=== PATIENT | male | born 1940 | race Caucasian/White ===

== ENCOUNTER 2019-01-27 12:45 | Inpatient (IN) | payer BC, MEDICARE ==
[~2019-01-27] VITALS: Ht 180.3 cm; Wt 93.5 kg
[2019-01-27] MEDS ORDERED: ADENOSINE 6 MG/2 ML ONE (12:56)
[2019-01-27] MEDS ORDERED: SODIUM CHLORIDE FLUSH 10ML SYR IVF ONE (13:00)
--- NOTE | 2019-01-27 13:21 | NUR ---
PAGED DR FAUST FOR DR Hasmukh GIVENS
[2019-01-27 13:25] LABS: BASOPHILS # (AUTO) 0.03 x10^3/uL (0-0.1); BASOPHILS % (AUTO) 0 % (0-1); EOSINOPHILS # (AUTO) 0.13 x10^3/uL (0-0.4); EOSINOPHILS % (AUTO) 2 % (1-7); LYMPHOCYTES % (AUTO) 27 % (22-44); MD NO; MEAN CORPUSCULAR HEMOGLOBIN 34.2 pg (27.5-34.5); MEAN CORPUSCULAR HGB CONC 33.3 g/dL (33.2-36.2); MEAN CORPUSCULAR VOLUME 102.7 fL (81-97); MEAN PLATELET VOLUME 8.4 fL (7.4-10.4); MONOCYTES % (AUTO) 9 % (2-9); NEUTROPHILS # (AUTO) 4.89 x10^3/uL (1.8-6.8); NEUTROPHILS % (AUTO) 62 % (42-75); PLATELET COUNT 210 x10^3/uL (130-400); RED CELL DISTRIBUTION WIDTH 12.6 % (9.4-14.8)
[2019-01-27] MEDS ORDERED: DILTIAZEM 125 MG in SODIUM CHLORIDE 0.9% 100 ML IV SCH ×2 (13:26→16:30)
[2019-01-27] MEDS ORDERED: DILTIAZEM 5 MG/ML, 5ML ONE (13:27)
[2019-01-27] MEDS ORDERED: DILTIAZEM 5 MG/ML, 5ML IV ONE (13:30)
[2019-01-27 13:37] LABS: ALANINE AMINOTRANSFERASE 22 U/L (12-78); ALBUMIN 3.5 g/dL (3.4-5.0); ANION GAP 5 mmol/L (5-15); CALCIUM 8.2 mg/dL (8.5-10.1); CHLORIDE 104 mmol/L (98-107); CREATININE 0.88 mg/dL (0.7-1.3)
[2019-01-27 13:42] LABS: ALKALINE PHOSPHATASE 53 U/L (45-117); BILIRUBIN,TOTAL 1.1 mg/dL (0.2-1.0); TOTAL PROTEIN 6.3 g/dL (6.4-8.2); TROPONIN I 0.045 ng/mL (0.000-0.045)
[2019-01-27] MEDS ORDERED: LOSA100T14 PO (14:08)
[2019-01-27] MEDS ORDERED: ASPI-496 PO (14:08)
[2019-01-27] MEDS ORDERED: AMLO-150 PO (14:08)
[2019-01-27] MEDS ORDERED: DOCUSATE 100 MG CAPSULE PO PRN (16:00)
[2019-01-27] MEDS ORDERED: ACETAMINOPHEN 325 MG TABLET PO PRN (16:00)
[2019-01-27] MEDS ORDERED: ENALAPRILAT 1.25 MG/ML, 2ML IV PRN (16:00)
[2019-01-27] MEDS ORDERED: ONDANSETRON ODT 4 MG PO PRN (16:00)
[2019-01-27 16:01] VITALS: BP 121/63
[2019-01-27] MEDS: METOPROLOL TARTRATE 50 MG TABLET PO SCH ×2 (16:35→21:31)
[2019-01-27 16:43] VITALS: BP 111/77
[2019-01-27] MEDS ORDERED: SIMV10TA3 PO (17:05)
[2019-01-27 18:47] VITALS: BP 110/71
[2019-01-27 21:30] VITALS: BP 126/79
[2019-01-27] MEDS: APIXABAN 5 MG TABLET PO SCH (21:31)
[2019-01-27] MEDS: SIMVASTATIN 10 MG TABLET PO SCH (21:31)
[2019-01-27] MEDS: ASPIRIN 81 MG TABLET EC PO SCH (21:31)
[2019-01-28] MEDS ORDERED: DILTIAZEM 5 MG/ML, 5ML IVPush PRN
[2019-01-28] MEDS ORDERED: SIMETHICONE 80 MG CHEW TAB PO PRN
[2019-01-28 01:00] VITALS: BP 111/75
[2019-01-28 05:18] LABS: BASOPHILS # (AUTO) 0.02 x10^3/uL (0-0.1); BASOPHILS % (AUTO) 0 % (0-1); EOSINOPHILS # (AUTO) 0.24 x10^3/uL (0-0.4); EOSINOPHILS % (AUTO) 4 % (1-7); LYMPHOCYTES # (AUTO) 1.98 x10^3/uL (1-3.4); LYMPHOCYTES % (AUTO) 31 % (22-44); MD NO; MEAN CORPUSCULAR HEMOGLOBIN 35.4 pg (27.5-34.5); MEAN CORPUSCULAR HGB CONC 33.9 g/dL (33.2-36.2); MEAN CORPUSCULAR VOLUME 104.5 fL (81-97); MEAN PLATELET VOLUME 8.9 fL (7.4-10.4); MONOCYTES # (AUTO) 0.59 x10^3/uL (0.2-0.8); MONOCYTES % (AUTO) 9 % (2-9); NEUTROPHILS # (AUTO) 3.56 x10^3/uL (1.8-6.8); NEUTROPHILS % (AUTO) 56 % (42-75); PLATELET COUNT 201 x10^3/uL (130-400); RED BLOOD COUNT 3.96 x10^6/uL (4.38-5.82); RED CELL DISTRIBUTION WIDTH 13.1 % (9.4-14.8)
[2019-01-28 05:32] LABS: ANION GAP 5 mmol/L (5-15); CALCIUM 8.1 mg/dL (8.5-10.1); CHLORIDE 108 mmol/L (98-107)
[2019-01-28 05:33] LABS: CREATININE 0.86 mg/dL (0.7-1.3)
[2019-01-28 05:47] VITALS: BP 137/90
[2019-01-28 06:40] LABS: TROPONIN I < 0.015 ng/mL (0.000-0.045)
[2019-01-28 07:15] VITALS: BP 128/87
[2019-01-28] MEDS: CALCIUM CARBONATE 500 MG TAB.CHEW PO SCH (09:00)
[2019-01-28] MEDS: ASPIRIN 81 MG TABLET EC PO SCH ×2 (13:01→20:11)
[2019-01-28] MEDS: APIXABAN 5 MG TABLET PO SCH ×2 (13:01→20:11)
[2019-01-28] MEDS: METOPROLOL TARTRATE 25 MG TABLET PO SCH ×3 (13:01→20:11)
[2019-01-28 13:58] VITALS: BP 134/82
[2019-01-28] MEDS ORDERED: PROPOFOL 10 MG/ML, 20ML ONE (14:58)
[2019-01-28] MEDS ORDERED: DILTIAZEM 125 MG in SODIUM CHLORIDE 0.9% 100 ML IV SCH (16:30)
[2019-01-28 19:41] VITALS: BP 118/73
[2019-01-28] MEDS: SIMVASTATIN 10 MG TABLET PO SCH (20:11)
[2019-01-29 01:43] VITALS: BP 130/84
[2019-01-29 06:30] VITALS: BP 136/84
[2019-01-29] MEDS: CALCIUM CARBONATE 500 MG TAB.CHEW PO SCH (08:38)
[2019-01-29] MEDS: ASPIRIN 81 MG TABLET EC PO SCH (08:38)
[2019-01-29] MEDS: METOPROLOL TARTRATE 25 MG TABLET PO SCH (08:38)
[2019-01-29] MEDS: APIXABAN 5 MG TABLET PO SCH (08:38)
[2019-01-29] MEDS ORDERED: METO25TA35 PO (09:45)
[2019-01-29] MEDS ORDERED: APIX5TAB PO (09:45)
== END 2019-01-29 11:11 | disposition home or self-care (01) | DRG 309 ==
LOC: ED 13:56 → EDIP 13:57 → ED 14:20 → 5SO 14:59 → DCLOUNGE 01-29 10:48
PROVIDERS: ADMIT Internal Medicine; ATTEND Internal Medicine
PROC: B24BZZ4 Ultrasonography of Heart with Aorta, Transesophageal (ICD-10-PCS; 2019-01-28)
PROC: 5A2204Z Restoration of Cardiac Rhythm, Single (ICD-10-PCS; principal; 2019-01-28 10:30)
DX: I48.92 Unspecified atrial flutter (principal); D68.69 Other thrombophilia; D53.9 Nutritional anemia, unspecified; E78.5 Hyperlipidemia, unspecified; E83.51 Hypocalcemia; N40.0 Benign prostatic hyperplasia without lower urinary tract symptoms; I10 Essential (primary) hypertension; I48.91 Unspecified atrial fibrillation; Z85.46 Personal history of malignant neoplasm of prostate; Z87.891 Personal history of nicotine dependence; Z72.89 Other problems related to lifestyle
CPT/HCPCS: 36415; 71045; 80048; 80053; 82330; 82607; 83735; 83880; 84443; 84484; 85025; 85520; 92960; 93005; 93312; 93321; 93325; 96374; 99291; G0378; J2704

== ENCOUNTER → 2019-06-13 | Outpatient (CLI) | payer BC, MEDICARE ==
[~2019-06-13] MED LIST: AMLO-150 PO; APIX5TAB PO; ASPI-496 PO; LOSA100T14 PO; METO25TA35 PO; SIMV10TA3 PO
== END | disposition home or self-care (01) ==
LOC: CFH 09:56
PROVIDERS: ATTEND Internal Medicine Cardiovascular Disease
DX: I35.0 Nonrheumatic aortic (valve) stenosis (principal); I10 Essential (primary) hypertension; I48.92 Unspecified atrial flutter; E78.5 Hyperlipidemia, unspecified; Z79.01 Long term (current) use of anticoagulants; Z85.46 Personal history of malignant neoplasm of prostate; Z92.3 Personal history of irradiation
CPT/HCPCS: 93306

== ENCOUNTER → 2019-10-17 | Outpatient (CLI) | payer BC ==
[~2019-10-17] MED LIST changes: +SIMV10TA18 PO; -SIMV10TA3 PO
== END | disposition home or self-care (01) ==
LOC: CVU 08:11
PROVIDERS: ATTEND Internal Medicine Cardiovascular Disease
DX: I36.1 Nonrheumatic tricuspid (valve) insufficiency (principal); I51.7 Cardiomegaly; I71.9 Aortic aneurysm of unspecified site, without rupture
CPT/HCPCS: 93306

== ENCOUNTER → 2020-11-09 | Outpatient (CLI) | payer MEDICARE | END | disposition home or self-care (01) | LOC: CFH 10:09 | PROVIDERS: ATTEND Internal Medicine Cardiovascular Disease | DX: I08.1 Rheumatic disorders of both mitral and tricuspid valves (principal); I71.9 Aortic aneurysm of unspecified site, without rupture | CPT/HCPCS: 93306 ==